=== PATIENT | male | born 1975 | race African-American/Black ===

== ENCOUNTER 2023-08-23 19:23 | Emergency (ER) | payer OTHER ==
[~2023-08-23] VITALS: Ht 167.6 cm; Wt 70.0 kg
[2023-08-23] MEDS ORDERED: ACET-683 PO (19:29)
[2023-08-23] MEDS: AMOXICILLIN 500 MG CAP PO ONE (20:35)
[2023-08-23] MEDS: ONDANSETRON 4MG ORAL DISINTEGRATING TAB PO ONE (20:35)
[2023-08-23] MEDS: BENZONATATE 100MG CAPSULE PO ONE (20:36)
[2023-08-23] MEDS: IBUPROFEN 600MG TAB PO ONE (20:36)
[2023-08-23] MEDS ORDERED: BENZ200C70 PO (21:02)
[2023-08-23] MEDS ORDERED: AMOX500C PO (21:02)
[2023-08-23] MEDS ORDERED: HYDR-3490 PO (21:02)
[2023-08-23 21:26] VITALS: BP 164/104; TEMP 98.9; O2SAT 98
== END 2023-08-23 21:15 | disposition home or self-care (01) ==
LOC: M ED 19:23
DX: U07.1 COVID-19 (principal); J02.0 Streptococcal pharyngitis; I10 Essential (primary) hypertension